=== PATIENT | male | born 1995 | race Caucasian/White ===

== ENCOUNTER 2017-03-29 18:41 | Emergency (ER) | payer MEDICAID ==
[~2017-03-29] VITALS: Ht 182.9 cm; Wt 86.2 kg
[2017-03-29 18:41] VITALS: BP 135/92
[2017-03-29] MEDS ORDERED: AZITHROMYCIN 250 MG TABLET PO ONE (20:30)
[2017-03-29] MEDS ORDERED: GENTAMICIN 80 MG/2 ML VIAL IM ONE (20:30)
[2017-03-29] MEDS ORDERED: GENTAMICIN 80 MG/2 ML VIAL ONE (20:36)
[2017-03-29] MEDS ORDERED: AZITHROMYCIN 250 MG TABLET ONE (20:36)
== END 2017-03-29 21:55 | disposition home or self-care (01) ==
LOC: ER 18:45
DX: A54.9 Gonococcal infection, unspecified (principal); Z88.0 Allergy status to penicillin
CPT/HCPCS: 96372; 99283; A4606; J1580; Z7610